=== PATIENT | male | born 2000 | race Two or more races ===

== ENCOUNTER 2021-11-22 10:56 | Inpatient (IN) | payer OTHER ==
[~2021-11-22] VITALS: Ht 170.2 cm; Wt 115.0 kg
[2021-11-22 11:49] LABS: HEMOGLOBIN 16.3 gm/dl (14.0-17.5); RED BLOOD COUNT 5.19 M/UL (4.20-5.50); WHITE BLOOD COUNT 7.5 K/UL (4.5-11.0)
[2021-11-22 12:17] LABS: BUN/CREATININE RATIO 11 (0-10)
[2021-11-22] MEDS ORDERED: GLUCOPHAGE 500500 MG PO (17:44)
[2021-11-22 19:15] LABS: BUN/CREATININE RATIO 8 (0-10)
[2021-11-22 22:06] LABS: BUN/CREATININE RATIO 12 (0-10)
[2021-11-23 02:13] LABS: BUN/CREATININE RATIO 11 (0-10)
[2021-11-23 06:04] LABS: WHITE BLOOD COUNT 8.7 K/UL (4.5-11.0)
[2021-11-23 06:06] LABS: HEMOGLOBIN 13.8 gm/dl (14.0-17.5); RED BLOOD COUNT 4.5 M/UL (4.20-5.50)
[2021-11-23 06:36] LABS: BUN/CREATININE RATIO 11 (0-10)
[2021-11-23 09:41] LABS: BUN/CREATININE RATIO 8 (0-10)
[2021-11-23 15:11] LABS: BUN/CREATININE RATIO 7 (0-10)
[2021-11-23] MEDS ORDERED: GLIPIZIDE ER10 MG PO (16:01)
[2021-11-23] MEDS ORDERED: GLUCOPHAGE 500500 MG PO (16:06)
[2021-11-23] MEDS ORDERED: METER-CHECK1 EACH MC (16:06)
[2021-11-23] MEDS ORDERED: LANCETS1 EAC1 MC (16:06)
[2021-11-24 09:13] LABS: HBSAG SCREEN Negative (Negative); HEP A AB, IGM Negative (Negative); HEP B CORE AB, IGM Negative (Negative); HEP C VIRUS AB 0.1 (0.0-0.9)
== END 2021-11-23 17:17 | disposition home or self-care (01) | DRG 639 ==
LOC: ER1 10:56 → CDU 14:40 → CCU 11-23 05:43
PROVIDERS: Emergency Medicine; Internal Medicine; Physician Assistant; Physician Assistant Medical; ADMIT Internal Medicine
DX: E11.10 Type 2 diabetes mellitus with ketoacidosis without coma (principal); Z20.822 Contact with and (suspected) exposure to COVID-19; E87.6 Hypokalemia; K74.60 Unspecified cirrhosis of liver; R94.5 Abnormal results of liver function studies; R74.01 Elevation of levels of liver transaminase levels; Z91.14 Patient's other noncompliance with medication regimen; Z79.4 Long term (current) use of insulin; Z79.899 Other long term (current) drug therapy; Z79.84 Long term (current) use of oral hypoglycemic drugs
CPT/HCPCS: 36415; 36600; 80048; 80053; 80061; 80074; 81001; 82009; 82803; 82962; 83036; 83690; 83880; 85025; 85027; J2405; J3480; Q9967; U0002